=== PATIENT | female | born 1995 | race Caucasian/White ===

== ENCOUNTER → 2018-03-12 16:30 | Outpatient (CLI) | payer OTHER, SELFPAY ==
--- NOTE | 2018-03-12 16:30 | ASPS_PTH ---
PATIENT: SUDHA GREEN LOC: [facility] U#:[id number] AGE/SX: 30/F ROOM: RE03/12/[address]: Dr. Chalino Abraham MD : 1995 BED: DIS: SPEC #: [id number] RECD: 03/13/18 09:17 STATUS: AJIT CLAUDIA #: [id number] PEDRO: 03/12/18 16:[address]: Chalino Abraham DEPT: CYTOLOGY RECD BY: Klever Mccurdy Tissues: Thyroid gland, NOS Procedures: Pap Stain (control) Special Stain Group II Cytology Other HEADER OPERATION: Left thyroid FNA PRE-OP DIAGNOSIS: Left thyroid nodule TISSUE SUBMITTED: Left thyroid slides DIAGNOSIS CYTOLOGY Left thyroid nodule, FNA (smears): Consistent with benign follicular nodule with focal cystic changes. See cytology study and comment. SJ:erik 03/16/18 COMMENT Immediate cytologic evaluation to determine adequacy is not applicable. Correlation with clinical, radiologic findings and appropriate follow up are necessary. CYTOLOGY STUDY Slides are reviewed. The specimen is adequate for evaluation. The specimen consists of benign follicular cells and macrophages. CYTOLOGY GROSS Received are 6 smears labeled with the patient's name and designated per the requisition as Left thyroid nodule. Submitted for staining. / Moises 03/15/18 TC:5 CPT: 70671
== END ==
PROVIDERS: Visit Provider Surgery
DX: E04.1 Nontoxic single thyroid nodule (principal)
CPT/HCPCS: 88161; 88313

== ENCOUNTER 2018-04-21 05:22 | Day surgery (SDC) | payer OTHER, SELFPAY ==
--- NOTE | 2018-04-21 | THYROID_PTH ---
PATIENT: SUDHA GREEN [place] [facility] [place][id number] AGE/SX: 22/F ROOM: RE04/21/[address]: Dr. Chalino Abraham MD : 1995 BED: DIS: 04/21/2018 SPEC #: [id number] RECD: 04/21/18 11:57 STATUS: AJIT CLAUDIA #: [id number] PEDRO: 04/21/18 00:[address]: Chalino Abraham DEPT: SURGICAL PATHOLOGY RECD BY: Klever Mccurdy ENTERED: 04/22/18 11:58 SP TYPE: THYROID OTHR DR: JOVANY Mccallum Tissues: Thyroid gland, NOS Procedures: Surgery Specimen Level V HEADER OPERATION: Left thyroidectomy PRE-OP DIAGNOSIS: Left thyroid nodule TISSUE SUBMITTED: Left thyroid lobe MICROSCOPIC DIAGNOSIS Left thyroid lobe, lobectomy: Follicular adenoma (5 cm in greatest dimension). Chronic lymphocytic thyroiditis. SJ:erik 6/8/18 COMMENT Please make reference to previous cytology ([id number]) left thyroid nodule FNA with diagnosis of consistent with benign follicular nodule with focal cystic changes. Case has been reviewed in consultation with Dr. Conrad who concurs with the above diagnosis. IDC:AM MICROSCOPIC DESCRIPTION Slides are reviewed. GROSS DESCRIPTION Received in fixative is one container labeled with the patient's name and designated left thyroid lobe. The specimen consists of a thyroidectomy specimen consisting of left thyroid lobe and isthmus weighing 35 gm. The left thyroid lobe measures 6 x 4 x 3.5 cm and the isthmus measures 1 x 1 x 0.5 cm. No external parathyroid tissue is identified. The specimen is inked as follows: anterior ? blue, posterior ? black and isthmic margin ? yellow. Serial sections reveal a dupont, solid, circumscribed nodular mass occupying >90% of left lobe measuring 5 x 4 x 3.5 cm. Sections of nodule reveal focal area of hemorrhage. No distinct capsule is identified. [employer] sections are submitted in ten cassettes as follows: 1???isthmus, entire submitted, 2-10 ? left lobe including nodular mass (2 contains the most superior portion and 10 contains the most inferior portion). / SAMARA:erik 04/21/18 TC:1 CPT: 71895
--- NOTE | 2018-04-21 05:22 | DT_ITS ---
This patient was seen during an EMR downtime April 19, 2018 - April 26, 2018. This patient may have a combination of paper and electronic documentation or all paper documentation. All documentation is viewable within the e-chart portion of [facility] for each patient visit.
[2018-04-24 07:35] LABS: Anion Gap 7 (5-15); BUN 13 mg/dL (7-18); BUN/Creat Ratio 17.3 RATIO (10-20); Calcium,Total 8.7 mg/dL (8.5-10.1); Chloride 106 mmol/L (98-107); Creatinine, Serum 0.75 mg/dL (0.55-1.02); EST Glomerular Filtration Rate 104 mL/min (>60); Est Glom Filt Rate - Afr Amer 126 mL/min (>60); Glucose 88 mg/dL (74-106); Potassium 3.8 mmol/L (3.5-5.1); Sodium Level 140 mmol/L (136-145)
[2018-04-24 08:08] LABS: Hematocrit 42.1 % (37-47); Hemoglobin 13.9 g/dl (12.0-15.0); Mean Corpuscular Hgb 29.9 pg (27.0-32.0); Mean Corpuscular Volume 90.5 fL (81-99); Platelet Count 219 K/mm3 (150-450); RBC Distribution Width CV 13.3 % (11.6-14.6); RBC Distribution Width SD 43.9 fl (35.1-43.9); Red Blood Count 4.65 M/mm3 (4.2-5.4); White Blood Count 9.2 K/mm3 (4.4-11.0)
[2018-04-24 08:09] LABS: Mean Platelet Vol. 11.8 fl (6.2-12.0); Scan Indicated on CBC? Y/N NO
[2018-04-24 11:11] LABS: Internal QC Validated? YES +Cl - CLEAR BKGD; Pregnancy, Urine Negative Negative
== END 2018-04-21 14:32 | disposition home or self-care (01) ==
LOC: SDC 04-22 11:07
PROVIDERS: Family Provider Physician Assistant; PCP Physician Assistant; Visit Provider Surgery
PROC: (CPT 60210; principal; 2018-04-21 07:00)
DX: D34 Benign neoplasm of thyroid gland (principal); E06.3 Autoimmune thyroiditis
CPT/HCPCS: 00320; 60210; 80048; 81025; 84443; 85027; 88307; J7120; J2405

== ENCOUNTER → 2018-06-02 13:29 | Outpatient (CLI) | payer OTHER, SELFPAY ==
[2018-06-02 15:49] LABS: Thyroid Stim Hormone (TSH) 2.53 uIU/mL (0.358-3.74)
== END ==
PROVIDERS: Family Provider Physician Assistant; PCP Physician Assistant; Visit Provider Surgery
DX: E07.9 Disorder of thyroid, unspecified (principal)
CPT/HCPCS: 36415; 84443